=== PATIENT | male | born 1965 | race African-American/Black ===

== ENCOUNTER 2022-04-21 16:35 | Inpatient (IN) ==
[2022-04-21] MEDS ORDERED: SODIUM CHLORIDE 0.9% 1,000 ML IV STA ×2 (21:51→23:59)
[2022-04-21] MEDS ORDERED: ONDANSETRON 4 MG/2 ML VIAL IV STA (22:34)
[2022-04-21 22:41] LABS: Basophils % 0.1 % (0.0-0.8); Hematocrit 30.1 VOL% (42.0-52.0); Hemoglobin 9.5 GM/DL (14.0-18.0); Immature Granulocytes % 4.6 %; Immature Granulocytes Absolute 0.66 #; Lymphocytes # 0.8 10*3/uL (1.4-4.0); Lymphocytes % 5.9 % (21.2-54.2); Mean Corpuscular HGB Conc 31.6 GM/DL (32-36); Mean Corpuscular Volume 93.5 FL (87-102); Mean Platelet Volume 13.6 FL (9.6-12.0); Monocytes # 0.3 10*3/uL (0.11-0.8); Monocytes % 2.3 % (1.7-12.7); Neutrophils % 87.1 % (38.7-73.9); Platelet Count 131 T/CUMM (130-400); Red Blood Count 3.22 MC/CUMM (3.8-5.5); Red Cell Distribution Width 18.3 % (9.3-17.3); White Blood Count 14.3 T/CUMM (4-12)
[2022-04-21 23:11] LABS: Bilirubin,Total 0.7 MG/DL (0.20-1.00); Calcium 8.8 MG/DL (8.5-10.1); Osmolality,Calculated 298.8 MOS/KG (273-304); Total Protein 8.1 G/DL (6.4-8.2)
[2022-04-21 23:21] LABS: Band Neutrophils 2 % (0-10); Lymphocytes 4 % (20-55); Platelet Estimate Decreased; Total Cells Counted 100
[2022-04-22 00:17] LABS: Amorphous Crystals,Urine Occasional /HPF (Few); Bacteria,Urine Many /HPF (Few); Hyaline Casts,Urine 16 /LPF (0-3); Mucus,Urine Occasional /LPF (Occasional); RBC,Urine 31 /HPF (0-4); Squamous Epithelial Cell,Urine Occasional /HPF (0-10)
[2022-04-22 00:18] LABS: Bilirubin,Urine Negative (Negative); Blood, Urine Large mg/dL (Negative); Glucose,Urine (UA) Negative (Negative); Ketones,Urine Negative (Negative); Nitrite,Urine Negative (Negative); Protein,Urine >=300 mg/dL (Negative); Urine Appearance CLOUDY (Clear); Urine Color Yellow (Yellow); Urine Specific Gravity >= 1.030 (1.001-1.035); Urine Urobilinogen 0.2 eU/dL (<2.0)
[2022-04-22] MEDS ORDERED: cefTRIAXone 1,000 MG in SODIUM CHLORIDE 0.9% 100 ML IV STA (02:04)
[2022-04-22] MEDS ORDERED: ONDANSETRON 4 MG/2 ML VIAL IV PRN (03:02)
[2022-04-22] MEDS ORDERED: MAGNESIUM SULF RIDER 2 GM/50 ML PREMIX IV ONE (03:30)
[2022-04-22] MEDS: SODIUM CHLORIDE 0.9% 1,000 ML IV SCH ×3 (05:42→20:02)
[2022-04-22 05:53] LABS: Basophils % 0.1 % (0.0-0.8); Eosinophils # 0.1 10*3/uL (0.0-0.87); Eosinophils % 1.2 % (0.00-10.9); Hematocrit 29.4 VOL% (42.0-52.0); Hemoglobin 9.2 GM/DL (14.0-18.0); Immature Granulocytes % 6.7 %; Lymphocytes # 0.9 10*3/uL (1.4-4.0); Lymphocytes % 11.5 % (21.2-54.2); Mean Corpuscular HGB Conc 31.3 GM/DL (32-36); Mean Corpuscular Volume 95.5 FL (87-102); Mean Platelet Volume 12.7 FL (9.6-12.0); Monocytes # 0.2 10*3/uL (0.11-0.8); Monocytes % 2.4 % (1.7-12.7); Neutrophils % 78.1 % (38.7-73.9); Platelet Count 104 T/CUMM (130-400); Red Blood Count 3.08 MC/CUMM (3.8-5.5); Red Cell Distribution Width 18.2 % (9.3-17.3); White Blood Count 7.5 T/CUMM (4-12)
[2022-04-22 06:14] LABS: Calcium 8.7 MG/DL (8.5-10.1); Osmolality,Calculated 300.8 MOS/KG (273-304); Potassium 3.7 MMOL/L (3.5-5.1)
[2022-04-22 06:21] LABS: Hypochromia Slight; Lymphocytes 11 % (20-55); Microcytosis Slight; Total Cells Counted 100
[2022-04-22] MEDS: PANTOPRAZOLE 40 MG VIAL IV SCH (10:21)
[2022-04-22] MEDS ORDERED: ACETAMINOPHEN 650 MG SUPP RECTAL PRN (22:27)
[2022-04-23] MEDS: SODIUM CHLORIDE 0.9% 1,000 ML IV SCH ×3 (03:40→22:42)
[2022-04-23] MEDS: cefTRIAXone 1,000 MG in SODIUM CHLORIDE 0.9% 100 ML IV SCH (03:40)
[2022-04-23 09:25] LABS: Calcium 8.9 MG/DL (8.5-10.1); Potassium 3.9 MMOL/L (3.5-5.1)
[2022-04-23] MEDS: PANTOPRAZOLE 40 MG VIAL IV SCH (09:27)
[2022-04-24] MEDS: cefTRIAXone 1,000 MG in SODIUM CHLORIDE 0.9% 100 ML IV SCH (04:06)
[2022-04-24 05:19] LABS: Calcium 8.6 MG/DL (8.5-10.1); Osmolality,Calculated 296.1 MOS/KG (273-304); Potassium 3.3 MMOL/L (3.5-5.1)
[2022-04-24] MEDS: SODIUM CHLORIDE 0.9% 1,000 ML IV SCH ×4 (05:28→21:00)
[2022-04-24] MEDS: PANTOPRAZOLE 40 MG VIAL IV SCH (09:18)
[2022-04-24] MEDS: CHOLESTYRAMINE 4 GM PACK PO SCH ×2 (10:54→21:00)
[2022-04-24] MEDS: HYDROmorphone 1 MG/1 ML SYRINGE IV PRN ×2 (17:15→23:00)
[2022-04-25] MEDS: SODIUM CHLORIDE 0.9% 1,000 ML IV SCH ×3 (03:17→21:17)
[2022-04-25] MEDS: cefTRIAXone 1,000 MG in SODIUM CHLORIDE 0.9% 100 ML IV SCH (03:18)
[2022-04-25 05:09] LABS: Basophils % 0.9 % (0.0-0.8); Eosinophils # 0.2 10*3/uL (0.0-0.87); Eosinophils % 3.4 % (0.00-10.9); Immature Granulocytes % 10.8 %; Immature Granulocytes Absolute 0.47 #; Lymphocytes # 0.7 10*3/uL (1.4-4.0); Lymphocytes % 16.1 % (21.2-54.2); Mean Corpuscular HGB Conc 30.8 GM/DL (32-36); Mean Corpuscular Volume 97.3 FL (87-102); Mean Platelet Volume 13.9 FL (9.6-12.0); Monocytes # 0.4 10*3/uL (0.11-0.8); Neutrophils % 60.8 % (38.7-73.9); Red Blood Count 2.57 MC/CUMM (3.8-5.5); Red Cell Distribution Width 17.4 % (9.3-17.3); White Blood Count 4.4 T/CUMM (4-12)
[2022-04-25 05:11] LABS: Calcium 8.3 MG/DL (8.5-10.1); Hemoglobin 7.7 GM/DL (14.0-18.0); Osmolality,Calculated 288.1 MOS/KG (273-304); Platelet Count 60 T/CUMM (130-400); Potassium 3.1 MMOL/L (3.5-5.1)
[2022-04-25 05:53] LABS: Band Neutrophils 1 % (0-10); Eosinophils 5 % (0-10); Hypochromia 1+; Lymphocytes 9 % (20-55); Nucleated Red Blood Cells 3 /100 WBC (0-5); Platelet Estimate Decreased; Total Cells Counted 100
[2022-04-25] MEDS: PANTOPRAZOLE 40 MG VIAL IV SCH (08:56)
[2022-04-25] MEDS: CHOLESTYRAMINE 4 GM PACK PO SCH (09:24)
[2022-04-25] MEDS: HYDROmorphone 1 MG/1 ML SYRINGE IV PRN (21:16)
[2022-04-25] MEDS ORDERED: COLESTIPOL 1 GM TABLET PO SCH (22:00)
[2022-04-26] MEDS: SODIUM CHLORIDE 0.9% 1,000 ML IV SCH (04:10)
[2022-04-26] MEDS: cefTRIAXone 1,000 MG in SODIUM CHLORIDE 0.9% 100 ML IV SCH (04:47)
[2022-04-26 05:24] LABS: Basophils % 0.7 % (0.0-0.8); Eosinophils # 0.3 10*3/uL (0.0-0.87); Eosinophils % 4.4 % (0.00-10.9); Hematocrit 26.4 VOL% (42.0-52.0); Hemoglobin 8.1 GM/DL (14.0-18.0); Immature Granulocytes % 4.2 %; Immature Granulocytes Absolute 0.24 #; Lymphocytes # 0.8 10*3/uL (1.4-4.0); Lymphocytes % 13.9 % (21.2-54.2); Mean Corpuscular HGB Conc 30.7 GM/DL (32-36); Mean Corpuscular Volume 97.8 FL (87-102); Monocytes # 0.5 10*3/uL (0.11-0.8); Monocytes % 9.5 % (1.7-12.7); Neutrophils % 67.3 % (38.7-73.9); Red Cell Distribution Width 17.4 % (9.3-17.3); White Blood Count 5.68 T/CUMM (4-12)
[2022-04-26 05:27] LABS: Platelet Count 65 T/CUMM (130-400)
[2022-04-26 05:49] LABS: Band Neutrophils 2 % (0-10); Eosinophils 3 % (0-10); Lymphocytes 9 % (20-55); Nucleated Red Blood Cells 3 /100 WBC (0-5); Total Cells Counted 100
[2022-04-26 05:50] LABS: Hypochromia Slight; Platelet Estimate Decreased
[2022-04-26 06:02] LABS: Calcium 8.4 MG/DL (8.5-10.1); Osmolality,Calculated 288.7 MOS/KG (273-304); Potassium 2.9 MMOL/L (3.5-5.1)
[2022-04-26] MEDS: HYDROmorphone 1 MG/1 ML SYRINGE IV PRN ×2 (06:46→18:23)
[2022-04-26] MEDS: POTASSIUM CHLORIDE 20 MEQ TABLET PO SCH ×2 (09:07→12:24)
[2022-04-26] MEDS: SODIUM CHLOR 0.9% KCL 20 MEQ 20 MEQ/1,000 ML BAG IV SCH ×2 (09:09→17:38)
[2022-04-27] MEDS: SODIUM CHLOR 0.9% KCL 20 MEQ 20 MEQ/1,000 ML BAG IV SCH ×3 (01:12→21:34)
[2022-04-27] MEDS: cefTRIAXone 1,000 MG in SODIUM CHLORIDE 0.9% 100 ML IV SCH (03:30)
[2022-04-27] MEDS: HYDROmorphone 1 MG/1 ML SYRINGE IV PRN ×3 (04:50→13:58)
[2022-04-27] MEDS: MORPHINE ER 30 MG TABLET PO SCH ×2 (11:18→21:35)
[2022-04-27] MEDS ORDERED: MAGNESIUM SULF RIDER 4 GM in PREMIX 1 EACH IV ONE (12:10)
[2022-04-27 16:19] LABS: Calcium 8.2 MG/DL (8.5-10.1); Osmolality,Calculated 290.4 MOS/KG (273-304); Potassium 3.7 MMOL/L (3.5-5.1)
[2022-04-27] MEDS: oxyCODONE/ACETAMINOPHEN 5-325 MG TABLET PO PRN (17:24)
[2022-04-27] MEDS: amLODIPine 5 MG TABLET PO SCH (21:35)
[2022-04-27] MEDS: ZINC OXIDE 16% PASTE 57 GM TUBE TOP SCH (21:35)
[2022-04-28] MEDS: SODIUM CHLOR 0.9% KCL 20 MEQ 20 MEQ/1,000 ML BAG IV SCH ×3 (00:40→22:19)
[2022-04-28] MEDS: cefTRIAXone 1,000 MG in SODIUM CHLORIDE 0.9% 100 ML IV SCH (03:38)
[2022-04-28] MEDS: MORPHINE ER 30 MG TABLET PO SCH ×3 (08:26→21:43)
[2022-04-28] MEDS: CHOLECALCIFEROL 1,000 UNIT TABLET PO SCH (08:28)
[2022-04-28] MEDS: amLODIPine 5 MG TABLET PO SCH ×2 (08:29→21:43)
[2022-04-28] MEDS: ZINC OXIDE 16% PASTE 57 GM TUBE TOP SCH ×2 (08:29→21:43)
[2022-04-28] MEDS: FERROUS SULFATE 325 MG TABLET PO SCH (08:29)
[2022-04-28] MEDS: oxyCODONE/ACETAMINOPHEN 5-325 MG TABLET PO PRN (19:03)
[2022-04-29] MEDS: oxyCODONE/ACETAMINOPHEN 5-325 MG TABLET PO PRN (03:02)
[2022-04-29] MEDS: cefTRIAXone 1,000 MG in SODIUM CHLORIDE 0.9% 100 ML IV SCH (03:04)
[2022-04-29 07:58] VITALS: BP 124/82
[2022-04-29] MEDS: FERROUS SULFATE 325 MG TABLET PO SCH (09:06)
[2022-04-29] MEDS: amLODIPine 5 MG TABLET PO SCH (09:06)
[2022-04-29] MEDS: CHOLECALCIFEROL 1,000 UNIT TABLET PO SCH (09:06)
[2022-04-29] MEDS: MORPHINE ER 30 MG TABLET PO SCH (09:06)
[2022-04-29] MEDS: ZINC OXIDE 16% PASTE 57 GM TUBE TOP SCH (09:07)
[2022-04-29] MEDS: SODIUM CHLOR 0.9% KCL 20 MEQ 20 MEQ/1,000 ML BAG IV SCH (09:47)
== END 2022-04-29 11:30 | disposition home health service (06) | DRG 698 ==
LOC: N.ED 16:35 → N.EDINP 04-22 03:02 → SUATTDRO 04-22 03:02 → N.TELES 04-22 05:02
PROVIDERS: ADMIT Internal Medicine; ATTEND Internal Medicine

== ENCOUNTER 2022-05-03 15:09 | Inpatient (IN) ==
[2022-05-03 17:01] LABS: Basophils # 0.1 10*3/uL (0.0-0.2); Basophils % 0.9 % (0.0-0.8); Eosinophils # 0.3 10*3/uL (0.0-0.87); Eosinophils % 3.3 % (0.00-10.9); Hematocrit 32.2 VOL% (42.0-52.0); Immature Granulocytes % 0.9 %; Immature Granulocytes Absolute 0.07 #; Lymphocytes % 11.9 % (21.2-54.2); Mean Corpuscular HGB Conc 31.1 GM/DL (32-36); Mean Corpuscular Volume 98.5 FL (87-102); Mean Platelet Volume 11.1 FL (9.6-12.0); Monocytes # 0.4 10*3/uL (0.11-0.8); Monocytes % 5.4 % (1.7-12.7); Neutrophils % 77.6 % (38.7-73.9); Platelet Count 251 T/CUMM (130-400); Red Blood Count 3.27 MC/CUMM (3.8-5.5); Red Cell Distribution Width 19.3 % (9.3-17.3); White Blood Count 8.22 T/CUMM (4-12)
[2022-05-03] MEDS ORDERED: ONDANSETRON 4 MG/2 ML VIAL IV STA (17:16)
[2022-05-03] MEDS ORDERED: fentaNYL 100 MCG/2 ML VIAL IV STA (17:16)
[2022-05-03] MEDS ORDERED: SODIUM CHLORIDE 0.9% 1,000 ML IV STA (17:16)
[2022-05-03 17:18] LABS: Albumin 3.2 G/DL (3.4-5.0); Bilirubin,Total 0.4 MG/DL (0.20-1.00); Calcium 9.3 MG/DL (8.5-10.1); Osmolality,Calculated 280.3 MOS/KG (273-304); Potassium 3.8 MMOL/L (3.5-5.1); Total Protein 8.5 G/DL (6.4-8.2)
[2022-05-03 17:21] LABS: INR 1.2; PT Patient Result 12.6 SECS (10.1-12.1); Partial Thromboplastin Time 36.2 SECS (23.7-32.9)
[2022-05-03 17:42] LABS: Bacteria,Urine Few /HPF (Few); Mucus,Urine Occasional /LPF (Occasional); RBC,Urine 60 /HPF (0-4)
[2022-05-03 17:43] LABS: Bilirubin,Urine Negative (Negative); Blood, Urine Moderate mg/dL (Negative); Glucose,Urine (UA) Negative (Negative); Ketones,Urine 15 mg/dL (Negative); Nitrite,Urine Positive (Negative); Protein,Urine >=300 mg/dL (Negative); Urine Appearance Clear (Clear); Urine Color Yellow (Yellow); Urine Specific Gravity >= 1.030 (1.001-1.035); Urine Urobilinogen 0.2 eU/dL (<2.0)
[2022-05-03] MEDS ORDERED: cefTRIAXone 1,000 MG in SODIUM CHLORIDE 0.9% 100 ML IV STA (18:31)
[2022-05-03] MEDS ORDERED: ONDANSETRON 4 MG/2 ML VIAL IV PRN (19:39)
[2022-05-03] MEDS: LACTATED RINGERS 1,000 ML IV SCH (20:35)
[2022-05-04] MEDS: MORPHINE 2 MG/1 ML SYRINGE IV PRN ×4 (01:18→21:03)
[2022-05-04] MEDS: LACTATED RINGERS 1,000 ML IV SCH ×3 (05:06→20:05)
[2022-05-04 05:15] LABS: Basophils # 0.1 10*3/uL (0.0-0.2); Basophils % 1.1 % (0.0-0.8); Eosinophils # 0.3 10*3/uL (0.0-0.87); Eosinophils % 3.2 % (0.00-10.9); Hematocrit 28.9 VOL% (42.0-52.0); Hemoglobin 8.9 GM/DL (14.0-18.0); Immature Granulocytes % 0.6 %; Immature Granulocytes Absolute 0.05 #; Lymphocytes # 1.2 10*3/uL (1.4-4.0); Lymphocytes % 14.6 % (21.2-54.2); Mean Corpuscular HGB Conc 30.8 GM/DL (32-36); Mean Platelet Volume 10.8 FL (9.6-12.0); Monocytes # 0.5 10*3/uL (0.11-0.8); Monocytes % 6.5 % (1.7-12.7); Red Blood Count 2.89 MC/CUMM (3.8-5.5); Red Cell Distribution Width 19.5 % (9.3-17.3); White Blood Count 8.13 T/CUMM (4-12)
[2022-05-04 05:16] LABS: Platelet Count 190 T/CUMM (130-400)
[2022-05-04 05:31] LABS: Albumin 2.7 G/DL (3.4-5.0); Bilirubin,Total 0.4 MG/DL (0.20-1.00); Calcium 8.5 MG/DL (8.5-10.1); Potassium 3.9 MMOL/L (3.5-5.1); Total Protein 7.3 G/DL (6.4-8.2)
[2022-05-04] MEDS ORDERED: cefTRIAXone 2,000 MG in SODIUM CHLORIDE 0.9% 100 ML IV SCH (18:00)
[2022-05-04] MEDS ORDERED: cefTRIAXone 1,000 MG in SODIUM CHLORIDE 0.9% 100 ML IV SCH (18:00)
[2022-05-04] MEDS: MENTHOL/ZINC OXIDE OINT 71 GM JAR TOP SCH (20:05)
[2022-05-05] MEDS: LACTATED RINGERS 1,000 ML IV SCH ×3 (03:58→23:47)
[2022-05-05 04:43] LABS: Basophils # 0.1 10*3/uL (0.0-0.2); Basophils % 1.1 % (0.0-0.8); Eosinophils # 0.3 10*3/uL (0.0-0.87); Hematocrit 28.9 VOL% (42.0-52.0); Hemoglobin 8.8 GM/DL (14.0-18.0); Immature Granulocytes % 0.5 %; Immature Granulocytes Absolute 0.05 #; Lymphocytes # 0.9 10*3/uL (1.4-4.0); Lymphocytes % 10.2 % (21.2-54.2); Mean Corpuscular HGB Conc 30.4 GM/DL (32-36); Mean Platelet Volume 11.6 FL (9.6-12.0); Monocytes # 0.5 10*3/uL (0.11-0.8); Monocytes % 5.2 % (1.7-12.7); Platelet Count 191 T/CUMM (130-400); Red Blood Count 2.89 MC/CUMM (3.8-5.5); Red Cell Distribution Width 19.1 % (9.3-17.3); White Blood Count 9.11 T/CUMM (4-12)
[2022-05-05 04:58] LABS: Calcium 8.4 MG/DL (8.5-10.1); Potassium 3.8 MMOL/L (3.5-5.1)
[2022-05-05] MEDS ORDERED: DEXTROSE 10% 250 ML BAG IV PRN (05:14)
[2022-05-05] MEDS: MORPHINE 2 MG/1 ML SYRINGE IV PRN ×3 (06:26→21:15)
[2022-05-05] MEDS ORDERED: fentaNYL 12 MCG/HR PATCH TRANSDERM SCH (09:00)
[2022-05-05] MEDS: MENTHOL/ZINC OXIDE OINT 71 GM JAR TOP SCH ×2 (11:46→19:50)
[2022-05-05] MEDS: CIPROFLOXACIN INJ 400 MG/200 ML PREMIX IV SCH (18:50)
[2022-05-06] MEDS: MORPHINE 2 MG/1 ML SYRINGE IV PRN ×2 (06:04→13:29)
[2022-05-06] MEDS: CIPROFLOXACIN INJ 400 MG/200 ML PREMIX IV SCH (06:05)
[2022-05-06] MEDS: LACTATED RINGERS 1,000 ML IV SCH (06:05)
[2022-05-06 06:39] LABS: Basophils # 0.1 10*3/uL (0.0-0.2); Eosinophils # 0.3 10*3/uL (0.0-0.87); Eosinophils % 4.3 % (0.00-10.9); Hematocrit 31.6 VOL% (42.0-52.0); Hemoglobin 9.8 GM/DL (14.0-18.0); Immature Granulocytes % 0.6 %; Immature Granulocytes Absolute 0.04 #; Lymphocytes % 14.5 % (21.2-54.2); Mean Corpuscular Volume 98.8 FL (87-102); Mean Platelet Volume 11.3 FL (9.6-12.0); Monocytes # 0.4 10*3/uL (0.11-0.8); Monocytes % 6.4 % (1.7-12.7); Neutrophils % 73.2 % (38.7-73.9); Platelet Count 188 T/CUMM (130-400); Red Cell Distribution Width 18.9 % (9.3-17.3); White Blood Count 6.69 T/CUMM (4-12)
[2022-05-06 06:57] LABS: Calcium 8.9 MG/DL (8.5-10.1); Osmolality,Calculated 280.3 MOS/KG (273-304); Potassium 3.7 MMOL/L (3.5-5.1)
[2022-05-06 12:36] VITALS: BP 121/89
== END 2022-05-06 15:54 | disposition home or self-care (01) | DRG 389 ==
LOC: N.ED 15:09 → N.TELES 19:39
PROVIDERS: ADMIT Emergency Medicine; ATTEND Emergency Medicine